=== PATIENT | female | born 1945 | race Caucasian/White ===

== ENCOUNTER 2023-02-22 17:17 | Emergency (ER) | payer OTHER ==
[2023-02-22] MEDS ORDERED: IBUPROFEN 600 MG TABLET (FP) PO ONE (17:29)
[2023-02-22 17:39] VITALS: BP 182/90; PULSE 54; RESP 18; TEMP 98.2; BMI 38.2
== END 2023-02-22 20:53 | disposition home or self-care (01) ==
LOC: FER 17:17
DX: S63.92XA Sprain of unspecified part of left wrist and hand, initial encounter (principal); S83.91XA Sprain of unspecified site of right knee, initial encounter; M79.641 Pain in right hand; M79.642 Pain in left hand; M25.561 Pain in right knee; W01.0XXA Fall on same level from slipping, tripping and stumbling without subsequent striking against object, initial encounter
CPT/HCPCS: 70450-TC; 73130-TC-LT-FY; 73130-TC-RT-FY; 73560-TC-RT-FY; 73700-TC-RT; 99284-25